=== PATIENT | male | born 2000 | race Caucasian/White ===

== ENCOUNTER 2024-08-24 13:28 | Emergency (ER) | payer SELFPAY ==
[2024-08-24 14:11] LABS: BASOPHILS ABSOLUTE AUTO 0.1 x10-3/uL (0.0-0.3); BASOPHILS PERCENT AUTO 1.3 % (0.3-3.8); EOSINOPHILS ABSOLUTE AUTO 0.4 x10-3/uL (0.0-0.6); EOSINOPHILS PERCENT AUTO 6.4 % (0.1-6.8); HEMATOCRIT 38.9 % (38.3-50.1); HEMOGLOBIN 13.2 g/dL (12.9-17.7); LYMPHOCYTES ABSOLUTE AUTO 1.8 x10-3/uL (0.5-4.5); LYMPHOCYTES PERCENT AUTO 29.1 % (15.8-45.3); MEAN CORPUSCULAR HEMOGLOBIN 27.8 pg (27.0-33.3); MEAN CORPUSCULAR VOLUME 81.8 fL (80.8-98.7); MONOCYTES ABSOLUTE AUTO 0.5 x10-3/uL (0.0-1.2); MONOCYTES PERCENT AUTO 8.7 % (5.5-15.2); NEUTROPHILS ABSOLUTE AUTO 3.4 x10-3/uL (1.7-6.9); NEUTROPHILS PERCENT AUTO 54.5 % (40.3-71.8); PLATELET COUNT,PLT 214 x10(3)uL (117-477); RED BLOOD CELL COUNT 4.76 x10(6)uL (3.90-5.90); RED CELL DISTRIBUTION WIDTH 12.9 % (12.4-15.0); WHITE BLOOD CELL COUNT,WBC 6.2 x10-3/uL (3.2-10.1)
[2024-08-24 14:13] LABS: BILIRUBIN,URINE NEGATIVE (NEGATIVE); GLUCOSE,URINE NORMAL (NORMAL); KETONES,URINE NEGATIVE (NEGATIVE); LEUKOCYTE ESTERASE,URINE LARGE (NEGATIVE); NITRITE,URINE POSITIVE (NEGATIVE); OCCULT BLOOD,URINE NEGATIVE (NEGATIVE); PROTEIN,URINE NEGATIVE (NEGATIVE); UROBILINOGEN,URINE NORMAL (NEGATIVE)
[2024-08-24 14:14] LABS: APPEARANCE,URINE CLOUDY (CLEAR); COLOR,URINE YELLOW (YELLOW)
[2024-08-24 14:18] LABS: BACTERIA,URINE MANY (NS); EPITHELIAL CELLS,URINE OCCASIONAL; RBC,URINE 0-5 (0-5); WBC,URINE 50-75 (0-5)
[2024-08-24 14:18] LABS: BLOOD UREA NITROGEN,BUN 9 mg/dL (7-18); BUN/CREATININE RATIO 7.5 (9-20); CARBON DIOXIDE,CO2 29 mmol/L (21-32); CHLORIDE,CL 104 mmol/L (100-110); CREATININE 1.2 mg/dL (0.70-1.30); EST CRCL DRUG DOSING (CG) 100.48 mL/min; ESTIMATED GFR 87 mL/min (>60); GLUCOSE RANDOM 82 mg/dL (80-116); SODIUM,NA 139 mmol/L (135-145)
[2024-08-24 14:19] LABS: AMORPHOUS SEDIMENT,URINE FEW
[2024-08-24 14:24] LABS: A/G RATIO 1.1; ALANINE AMINOTRANSFERASE,ALT 18 U/L (12-36); ALBUMIN 4.1 g/dL (3.5-5.2); ALKALINE PHOSPHATASE 84 IU/L (56-112); ASPARTATE AMNIOTRANSFERASE,AST 17 IU/L (5-25); BILIRUBIN TOTAL 0.8 mg/dL (0.1-1.3); PROTEIN TOTAL,TP 7.8 g/dL (6.0-8.0)
[2024-08-24] MEDS: Ketorolac 30 MG/ML SDV IM ONE (14:59)
== END 2024-08-24 15:51 | disposition home or self-care (01) ==
LOC: FB.ED 13:28
DX: N13.30 Unspecified hydronephrosis (principal); N39.0 Urinary tract infection, site not specified; F17.210 Nicotine dependence, cigarettes, uncomplicated; Z91.010 Allergy to peanuts
CPT/HCPCS: 36415; 74176; 80053; 81001; 85025; 86140; 87086; 87088; 87186; 96372; 99284